=== PATIENT | female | born 1995 | race Asian ===

== ENCOUNTER 2016-10-14 20:56 | Emergency (ER) | payer BC, OTHER ==
[~2016-10-14] VITALS: Ht 154.9 cm; Wt 58.2 kg
[2016-10-14 21:06] VITALS: TEMP 37.1; Ht 154.9 cm; Wt 58.2 kg
[2016-10-14] MEDS ORDERED: PRENTAB26 PO (23:00)
[2016-10-14] MEDS ORDERED: SODIUM CHLORIDE 0.9% 1000ML 1,000 ML IV STA (23:04)
[2016-10-14 23:13] LABS: BASO % 0.3 %; BASO ABS # 0.02 K/uL (0-0.2); COMPLETE YES; HEMATOCRIT 37.1 % (37-47); IG% 0.3 %; LYMPH % 40.3 %; LYMPH ABS # 2.94 K/uL (1.2-3.4); MEAN CELL VOLUME 87.9 fL (80-100); MEAN CORPUSCULAR HEMOGLOBIN 31.8 pg (25-34); MEAN CORPUSCULAR HGB CONC 36.1 g/dl (32-36); MONO % 5.2 %; NEUT % 52.9 %; PLATELET COUNT 247 K/uL (130-400); RED BLOOD COUNT 4.22 M/uL (4.2-5.4); WHITE BLOOD COUNT 7.29 K/uL (4.8-10.8)
[2016-10-14 23:17] LABS: URINE APPEARANCE CLEAR (CLEAR); URINE BILIRUBIN NEG (NEG); URINE COLOR YELLOW; URINE NITRITE NEG (NEG); URINE PH 6.5 (4.5-7.5); URINE SPECIFIC GRAVITY 1.015 (1.000-1.030); UROBILINOGEN NEG (NEG); ZZUR CULT IF INDIC CLEAN CATCH NO
[2016-10-14 23:25] LABS: MANUAL MICROSCOPIC REQUIRED? NO; REVIEW REQ? NO
[2016-10-14 23:37] LABS: ALB/GLOB RATIO 1.2 (0.9-2); BUN/CREATININE RATIO 13.2 (10-20); CALCIUM 9.1 mg/dl (8.5-10.1); CREATININE 0.63 mg/dl (0.60-1.20); POTASSIUM 4.1 mmol/L (3.5-5.1)
--- NOTE | 2016-10-15 01:33 | EMERGENCY ROOM VISIT NOTE ---
History First contact with patient: 22:39 Chief Complaint: ABDOMINAL PAIN Stated Complaint: ABDOMINAL PAIN, JUST FOUND OUT SHE'S Nursing Triage Summary: 5 weeks spotting and cramping. History of Present Illness The patient is a 21 year old female who presents to the Emergency Department by private vehicle with her significant other for evaluation of her pelvic cramping. She reports that she developed cramping this evening. She reports feeling tired lately, but has had no other symptoms. She feels as though she may be five-weeks . Her last menstrual period was September 14. The patient had a miscarriage last year. She reports that she's had no vaginal discharge or drainage. She's had no bleeding or spotting. She has no SURVEY CREW CHIEF appointment at this point. The patient rates her current discomfort as a 6/10. She denies any dizziness, light headedness, chest pain, palpitations, short of breath, nausea, or vomiting. She reports no hematuria or dysuria. Review of Systems A complete 10-point Review of Systems was discussed with the patient, with pertinent positives and negatives listed in the History of Present Illness. All remaining Review of Systems questions can be considered negative unless otherwise specified. Social History Smoking Status: Never Smoker Smokeless Tobacco Use: No Alcohol Use: none Drug Use: none Current/Historical Medications Scheduled Multivit/Min/Iron/Fol Ac/Pren ( Vitamin), 1 TAB PO DAILY Allergies Coded Allergies: No Known Allergies (Unverified , 10/14/16) Physical Exam Vital Signs Date Time Temp Pulse Resp B/P Pulse Ox O2 Delivery O2 Flow Rate FiO2 10/15/16 01:49 84 18 102/61 99 10/15/16 00:49 87 20 103/53 98 Room Air 10/14/16 22:57 95 10/14/16 22:54 96 20 123/70 98 Room Air 10/14/16 21:06 37.1 79 18 115/64 98 Room Air Pain Rating (0-10): 6 Physical Exam VITAL SIGNS - Vital signs and nursing notes were reviewed. GENERAL - 21-year-old female appearing her stated age who is in no acute distress. Communicates well with provider and answers questions appropriately. LUNGS - Chest wall symmetric without accessory muscle use, intercostals retractions, or central cyanosis. Normal vesicular breath sounds CTA B/L. No wheezes, rales, or rhonchi appreciated. CARDIAC - RRR with S1/S2. No murmur, rubs, or gallops appreciated. ABDOMEN - Abdominal contour flat and without pulsations or visible masses. BS normoactive all four quadrants. No tenderness to palpation appreciated throughout. No guarding. No Rebound Tenderness. Negative Rovsing's. Negative Turner's. No palpable masses, hepatosplenomegaly, or ascites noted. PSYCH - A&Ox3 and cooperates fully with examiner. Pt is very pleasant and interacts well with examiner. Medical Decision & Procedures ER Provider Diagnostic Interpretation: Radiological imaging and reports were reviewed by myself. Radiologist's Interpretation per [facility] as follows: US OB 1st TRIMESTER: No IUP. Thickened endometrium, 2.1 cm Flow visualized in both ovaries. 2.6 cm right ovarian cyst with small septation. No adnexal mass Free fluid in the cul-de-sac, around the uterine fundus and right adnexal regions. If positive , may represent early IUP, spontaneous AB, nonvisualized ectopic Laboratory Results 10/14/16 23:00 Red Blood Count 4.22, Mean Corpuscular Volume 87.9, Mean Corpuscular Hemoglobin 31.8, Mean Corpuscular Hemoglobin Concent 36.1, Mean Platelet Volume 10.0, Neutrophils (%) (Auto) 52.9, Lymphocytes (%) (Auto) 40.3, Monocytes (%) (Auto) 5.2, Eosinophils (%) (Auto) 1.0, Basophils (%) (Auto) 0.3, Neutrophils # (Auto) 3.86, Lymphocytes # (Auto) 2.94, Monocytes # (Auto) 0.38, Eosinophils # (Auto) 0.07, Basophils # (Auto) 0.02 10/14/16 23:00 Test 10/14/16 23:00 White Blood Count 7.29 K/uL (4.8-10.8) Red Blood Count 4.22 M/uL (4.2-5.4) Hemoglobin 13.4 g/dL (12.0-16.0) Hematocrit 37.1 % (37-47) Mean Corpuscular Volume 87.9 fL (80-100) Mean Corpuscular Hemoglobin 31.8 pg (25-34) Mean Corpuscular Hemoglobin Concent 36.1 g/dl (32-36) Platelet Count 247 K/uL (130-400) Mean Platelet Volume 10.0 fL (7.4-10.4) Neutrophils (%) (Auto) 52.9 % Lymphocytes (%) (Auto) 40.3 % Monocytes (%) (Auto) 5.2 % Eosinophils (%) (Auto) 1.0 % Basophils (%) (Auto) 0.3 % Neutrophils # (Auto) 3.86 K/uL (1.4-6.5) Lymphocytes # (Auto) 2.94 K/uL (1.2-3.4) Monocytes # (Auto) 0.38 K/uL (0.11-0.59) Eosinophils # (Auto) 0.07 K/uL (0-0.5) Basophils # (Auto) 0.02 K/uL (0-0.2) RDW Standard Deviation 38.8 fL (36.4-46.3) RDW Coefficient of Variation 12.1 % (11.5-14.5) Immature Granulocyte % (Auto) 0.3 % Immature Granulocyte # (Auto) 0.02 K/uL (0.00-0.02) Urine Color YELLOW Urine Appearance CLEAR (CLEAR) Urine pH 6.5 (4.5-7.5) Urine Specific [place] 1.015 (1.000-1.030) Urine Protein NEG (NEG) Urine Glucose (UA) NEG (NEG) Urine Ketones NEG (NEG) Urine Occult Blood NEG (NEG) Urine Nitrite NEG (NEG) Urine Bilirubin NEG (NEG) Urine Urobilinogen NEG (NEG) Urine Leukocyte Esterase NEG (NEG) Urine Test POS (NEG) Anion Gap 8.0 mmol/L (3-11) Est Creatinine Clear Calc Drug Dose 113.9 ml/min Estimated GFR () 146.5 Estimated GFR (Non- 126.4 BUN/Creatinine Ratio 13.2 (10-20) Calcium Level 9.1 mg/dl (8.5-10.1) Total Bilirubin 0.2 mg/dl (0.2-1) Aspartate Amino Transf (AST/SGOT) 17 U/L (15-37) Alanine Aminotransferase (ALT/SGPT) 25 U/L (12-78) Alkaline Phosphatase 68 U/L (45-117) Total Protein 7.6 gm/dl (6.4-8.2) Albumin 4.2 gm/dl (3.4-5.0) Globulin 3.4 gm/dl (2.5-4.0) Albumin/Globulin Ratio 1.2 (0.9-2) Human Chorionic Gonadotropin, Quant 373 mIU/mL Chemistry Specimen Hemolysis Medications Administered Medications (Trade) Dose Ordered Sig/Heath Route Start Time Stop Time Status Last Admin Dose Admin Sodium Chloride (Nss 1000ml) 1,000 ml @ 250 mls/hr Q4H STAT IV 10/14/16 23:04 10/15/16 02:52 DC 10/14/16 23:04 250 MLS/HR ED Course Patient was seen and evaluated by myself. Labs were drawn, saline lock in place. The patient was hydrated with normal saline. Pelvic ultrasound is ordered. Laboratory results demonstrate no acute leukocytosis, worrisome anemia , or bandemia. The patient has no significant electrolyte abnormalities. Lactate hCG is elevated at 373. Urine is positive. Urinalysis is unremarkable. Pelvic ultrasound as above. Laboratory results and imaging studies were reviewed with the patient and who acknowledges understanding. They'll follow-up quantitative hCG with her SURVEY CREW CHIEF in 48 hours. They're encouraged to return to the emergency department if they were unable to establish this appointment or if symptoms were to change or worsen. They were educated on worrisome symptoms for return visit to the emergency department. Patient discharged home afebrile and in good condition. Medical Decision Given the patient's presentation and stated complaints, I did elect to perform the above-mentioned workup. The patient resents today with pelvic discomfort. She has no vaginal bleeding or spotting. The patient is early in with some pelvic cramping. She his B+ on review of her previous blood work. Her ultrasound is otherwise unremarkable. At this point, the patient certainly has a delicate stage given the timeframe of her . The patient has not established obstetric follow-up this point. She was educated on worrisome symptoms for return visit to the emergency department. Patient discharged home in good condition. In the evaluation and treatment of this patient, the following differential diagnoses were considered: UTI, ectopic, threatened , appendicitis, amongst others. Impression Primary Impression: Pelvic pain during Departure Information Dispostion Home / Self-Care Condition GOOD Referrals Debbie Acosta MD (PCP) William Peace ., DO Patient Instructions ED Pelvic Pain Preg UKO 2 or 3 Tri, My [facility] Additional Instructions You have been seen in the emergency department today for your pelvic pain in early . Please follow-up with SURVEY CREW CHIEF in 48 hours for repeat laboratory testing, specifically quantitative hCG. If you are unable to see SURVEY CREW CHIEF, please return to the emergency Department for repeat testing. Return to the emergency department sooner for any changing or worsening symptoms.
[2016-10-15 01:49] VITALS: BP 102/61; PULSE 84; O2SAT 99
--- NOTE | 2016-10-15 06:39 | DIAGNOSTIC IMAGING REPORT ---
ULTRASOUND CLINICAL HISTORY: Pelvic pain. . COMPARISON STUDY: Pelvic ultrasound May 19, 2016. TECHNIQUE: Transabdominal and transvaginal sonography of the pelvis was performed. FINDINGS: The uterus measures 8.5 x 4.2 x 5.4 cm. No intrauterine gestational sac is identified. The endometrium is thickened, measuring 2.1 cm in thickness. There is a small to moderate amount of fluid within the pelvis. The right ovary measures 3.8 x 3.2 x 3.2 cm and contains a mildly complex 2.6 cm cyst. The left ovary measures 2.8 x 1.7 x 1.4 cm. Color flow is identified within each ovary. IMPRESSION: 1. No intrauterine gestational sac identified. Given positive test, differential considerations include a normal early intrauterine , missed spontaneous and sonographically occult ectopic patency. Clinical follow-up, including serial beta hCG levels, is recommended. 2. Small to moderate amount of fluid within the pelvis. 3. 2.6 cm right ovarian cyst. Electronically signed by: Domingo Kirk M.D. 10/15/2016 6:38 AM Dictated Date/Time: 10/15/2016 6:36 AM
[2017-06-17] MEDS ORDERED: MTR600X PO (07:29)
== END 2016-10-15 01:49 | disposition home or self-care (01) ==
LOC: C.EDB 20:58 → C.EDC 10-15 01:49
DX: R10.2 Pelvic and perineal pain (principal); O00.01 Abdominal pregnancy with intrauterine pregnancy; Z3A.01 Less than 8 weeks gestation of pregnancy

== ENCOUNTER 2017-02-07 16:07 | Emergency (ER) | payer OTHER ==
[~2017-02-07] VITALS: Ht 154.9 cm; Wt 62.7 kg
[~2017-02-07 16:07] MED LIST: PRENTAB26 PO
[2017-02-07 16:12] VITALS: BP 116/70; PULSE 80; TEMP 37; O2SAT 98; Ht 154.9 cm; Wt 62.7 kg
--- NOTE | 2017-02-07 16:35 | EMERGENCY ROOM VISIT NOTE ---
ED Visit Note First contact with patient: 16:15 CHIEF COMPLAINT: Left thumb laceration HISTORY OF PRESENT ILLNESS: This 21-year-old female patient presents to the emergency department ambulatory after cutting the left thumb just prior to arrival. The patient states that she was cutting up onions with a sharp knife when she missed and cut her thumb. The bleeding stopped shortly after the injury and there is no weakness or numbness of the area. Patient is unsure of her tetanus status. Full range of motion of the thumb. The patient rates her discomfort a 7/10. The patient is 5 months . REVIEW OF SYSTEMS: A 6 system review of systems was completed with positives and pertinent negatives listed in the HPI. ALLERGIES: No known drug allergies MEDICATIONS: vitamin PMH: No significant past medical history. SOCIAL HISTORY: The patient lives locally with family. Nonsmoker. PHYSICAL EXAM: Vital Signs: Reviewed Nurse's notes, vital signs stable. GENERAL : This is a 21-year-old female, in no acute distress, well-developed, well- nourished. SKIN: There is a 0.5 cm long laceration to the distal aspect of the left thumb. It is superficial and the edges only mildly gape apart with traction, but lay well without traction. There is no foreign material in the wound and it looks clean. There is no active bleeding. No deep structures such as tendons or nerves are seen in the base of the wound. Extension and flexion of the thumb is full and strong. Sensation to pain and light touch is intact. EMERGENCY DEPARTMENT COURSE: I examined the patient. Verbal consent was obtained to perform the procedure. The laceration was cleaned with betadine and sterile saline and there was no bleeding. The edges of the laceration were approximated and secured with 3 layers of Dermabond glue with good wound approximation. The patient tolerated the procedure well. The patient was offered a tetanus booster but prefers to follow-up with her AIR BREAKER OPERATOR, because she is unsure if she already received one or not. She was instructed to contact them on Thursday. Conservative measures were discussed. The patient was discharged home in stable condition. DIAGNOSIS: Finger laceration Current/Historical Medications Scheduled Multivit/Min/Iron/Fol Ac/Pren ( Vitamin), 1 TAB PO DAILY Allergies Coded Allergies: No Known Allergies (Unverified , 02/07/17) Vital Signs Date Time Temp Pulse Resp B/P (MAP) Pulse Ox O2 Delivery O2 Flow Rate FiO2 7/22/17 16:12 37.0 80 18 116/70 98 Room Air Departure Information Impression Primary Impression: Laceration of finger Dispostion Home / Self-Care Condition GOOD Referrals Debbie Acosta MD (PCP) Patient Instructions ED Laceration Ext Skin Glue, My [facility] Additional Instructions Read DermaBond handout. Ice and elevate for swelling and pain. Tylenol as needed for pain. Return for any signs of infection (increasing redness, swelling, drainage, fever ). Call your AIR BREAKER OPERATOR to make sure that your tetanus is up to date. Problem Qualifiers Primary Impression: Laceration of finger Encounter type: initial encounter Finger: thumb Damage to nail status: without damage Foreign body presence: without foreign body Laterality: left Qualified Codes: S61.012A - Laceration without foreign body of left thumb without damage to nail, initial encounter
== END 2017-02-07 16:40 | disposition home or self-care (01) ==
LOC: C.EDB 16:08 → C.EDD 16:40
DX: S61.012A Laceration without foreign body of left thumb without damage to nail, initial encounter (principal); W26.0XXA Contact with knife, initial encounter; Y93.G1 Activity, food preparation and clean up; Y99.8 Other external cause status

== ENCOUNTER 2017-06-16 00:56 | Inpatient (IN) | payer OTHER ==
[~2017-06-16] VITALS: Ht 154.9 cm; Wt 72.7 kg
[2017-06-16] MEDS ORDERED: LACTATED RINGER'S 1000ML 1,000 ML IV SCH (01:40)
[2017-06-16] MEDS ORDERED: LACTATED RINGER'S 1000ML 1,000 ML IV PRN (01:40)
[2017-06-16] MEDS ORDERED: BUPIVACAINE 0.25% 30 ML VIAL ONE (01:49)
[2017-06-16] MEDS ORDERED: EpHEDrine SULFATE INJ 50 MG/ML AMP ONE (01:49)
[2017-06-16] MEDS ORDERED: FENTANYL 2MCG/ML ROPIV 1.25MG/ML 100ML BAG EPI ONE (01:50)
[2017-06-16] MEDS ORDERED: FENTANYL CITRATE INJ 50 MCG/1 ML 2 ML VIAL ONE (01:50)
[2017-06-16 01:58] LABS: HEMATOCRIT 33.6 % (37-47); MEAN CELL VOLUME 88.9 fL (80-100); MEAN CORPUSCULAR HGB CONC 34.8 g/dl (32-36); MEAN PLATELET VOLUME 10.7 fL (7.4-10.4); PLATELET COUNT 173 K/uL (130-400); RED BLOOD COUNT 3.78 M/uL (4.2-5.4); WHITE BLOOD COUNT 9.68 K/uL (4.8-10.8)
[2017-06-16 02:05] VITALS: Ht 154.9 cm; Wt 72.7 kg
[2017-06-16] MEDS ORDERED: NALOXONE HCL INJ 1 MG in SODIUM CHLORIDE 0.9% 1000ML 1,000 ML IV PRN (02:33)
[2017-06-16] MEDS ORDERED: LACTATED RINGER'S 1000ML 500 ML IV PRN (02:33)
[2017-06-16] MEDS ORDERED: NALOXONE HCL INJ 0.4 MG/1 ML VIAL/CARP IV PRN (02:45)
[2017-06-16] MEDS ORDERED: ONDANSETRON INJ 2 MG/ML 2 ML VIAL IV PRN (02:45)
[2017-06-16] MEDS ORDERED: NALBUPHINE HCL INJ 10 MG/ML AMP IV PRN (02:45)
[2017-06-16] MEDS ORDERED: DiphenhydrAMINE HCL 50 MG/ML VIAL IV PRN (02:45)
[2017-06-16] MEDS ORDERED: EpHEDrine SULFATE INJ 50 MG/ML AMP IV PRN (02:45)
[2017-06-16] MEDS ORDERED: FENTANYL 2MCG/ML ROPIV 1.25MG/ML 100ML BAG EPI PRN (02:45)
[2017-06-16] MEDS ORDERED: OXYTOCIN 30 UNITS/500ML NSS IV ONE (06:23)
[2017-06-16] MEDS ORDERED: HYDROCORTISONE ACETATE 25 MG SUPP PR PRN (07:15)
[2017-06-16] MEDS ORDERED: DIPHTHERIA/TETANUS/PERTUSSIS 0.5 ML SYR/VIAL IM. ONE (07:15)
[2017-06-16] MEDS ORDERED: ACETAMINOPHEN 325 MG TAB PO PRN (07:15)
[2017-06-16] MEDS ORDERED: OXYCODONE/ACETAMINOPHEN 5-325 TAB PO PRN (07:15)
[2017-06-16] MEDS ORDERED: OXYTOCIN 30 UNITS/500ML NSS IV PRN (07:15)
[2017-06-16] MEDS ORDERED: SUPERCREAM 0.870 % 15GM JAR EXT PRN (07:15)
[2017-06-16] MEDS ORDERED: BENZOCAINE 20% AER SPR 82.5 GM CAN EXT PRN (07:15)
[2017-06-16] MEDS ORDERED: LANOLIN OINT EXT PRN ×2 (07:15)
[2017-06-16] MEDS ORDERED: IBUPROFEN 600 MG TAB PO PRN (07:15)
--- NOTE | 2017-06-16 07:23 | DELIVERY SUMMARY ---
DATE OF OPERATION: 06/16/2017 TIME OF DELIVERY: 06:41 a.m. DELIVERY OF PLACENTA: 06:43 a.m. DELIVERY NOTE: The patient is a 22-year-old, 2, para 0 at 38 weeks and 3 days gestation, who was admitted to labor and delivery on the morning of 06/16/2017 in active labor. She received an epidural for anesthesia. Artificial rupture of membranes was performed at 03:53 a.m. with clear amniotic fluid noted and reached complete dilation at 05:42 a.m. with urge to push. The patient pushed to delivery at 06:41 a.m. She delivered a viable female in the left occiput anterior position to an intact perineum. The baby was delivered and placed on the patient's abdomen. Cord was clamped x2 and cut. Apgars were 6 at 1 minute and 9 at 5 minutes. Please see nursing notes for further baby assessment. Cord blood was then obtained. Intact placenta with 3-vessel cord was delivered at 06:43 a.m. Oxytocin infusion was then begun. The lower uterine segment and vagina were cleared of any blood clots and debris. Exploration of the perineum noted a second-degree vaginal laceration, which was repaired with 2-0 and 3-0 Vicryl sutures in a normal fashion. Excellent hemostasis was noted. No other lacerations were seen. Estimated blood loss was 250 mL. All sponge, instrument and needle counts were found to be correct x2. Both the patient and baby tolerated the delivery well and were in recovery with stable vital signs. I attest to the content of the Intraoperative Record and any orders documented therein. Any exception s are noted below.
[2017-06-16 09:30] VITALS: BP 107/60; PULSE 98; TEMP 37.3; O2SAT 97
[2017-06-16] MEDS: PRENATAL VITAMIN TAB PO SCH (09:31)
[2017-06-16] MEDS: DOCUSATE SODIUM 100 MG CAP PO SCH ×2 (09:31→20:00)
[2017-06-16] MEDS: FERROUS SULFATE 325 MG TAB PO SCH (09:31)
--- NOTE | 2017-06-16 10:08 | Anesthesia Procedure Note ---
Anesthesia Epidural Removal Nt Date & Time Jun 16, 2017 at 10:08 Vital Signs Pain Intensity: 0.0 Notes Mental Status: alert / awake / arousable, participated in evaluation Nausea / Vomiting: adequately controlled Pain: adequately controlled Airway Patency, RR, SpO2: stable & adequate BP & HR: stable & adequate Hydration State: stable & adequate Neuraxial Anesthesia: was administered, sensory block is resolving Anesthetic Complications: no major complications apparent, pt satisfied with anesthetic care Epidural: removed without complications, with tip intact
[2017-06-16 12:25] VITALS: BP 110/64; PULSE 105; TEMP 36.9; O2SAT 98
[2017-06-16 15:15] VITALS: BP 115/70; PULSE 98; TEMP 36.8; O2SAT 98
[2017-06-16 19:45] VITALS: BP 118/68; PULSE 103; TEMP 36.6
[2017-06-16 23:25] VITALS: BP 111/69; PULSE 93; TEMP 36.5
[2017-06-17 03:35] VITALS: BP 118/77; PULSE 98; TEMP 36.8
[2017-06-17] MEDS: DOCUSATE SODIUM 100 MG CAP PO SCH ×2 (07:29→20:09)
[2017-06-17] MEDS ORDERED: MTR600X PO (07:29)
[2017-06-17] MEDS: PRENATAL VITAMIN TAB PO SCH (07:29)
[2017-06-17] MEDS: FERROUS SULFATE 325 MG TAB PO SCH (07:29)
[2017-06-17 07:30] VITALS: BP 122/77; PULSE 101; TEMP 36.9; O2SAT 97
--- NOTE | 2017-06-17 07:30 | Discharge Instructions ---
Discharge Instructions Date of Service Jun 17, 2017. Admission Reason for Admission: Labor Check Discharge Discharge Diagnosis / Problem: Vaginal delivery Discharge Goals Goal(s): Routine recovery after delivery Medications Continue Dispensed Medications: supercream, dermaplast, tucks, lansinoh Activity Recommendations Activity Limitations: per Instructions/Follow-up section . Instructions / Follow-Up Instructions / Follow-Up ACTIVITY RECOMMENDATIONS: * Gradual return to full activity over the next 2-3 weeks. * No lifting - nothing heavier than baby over the next 2-3 weeks. * Do not engage in vigorous exercise, sexual activity or sports until cleared by your physician. * Do not drive or operate any motorized equipment until cleared by your physician. * You may shower/bathe daily. BREAST CARE: If you are not breast feeding: * Wear a supportive bra 24 hours a day for one to two weeks. * Avoid stimulating your breasts and nipples as much as possible during the first few weeks after delivery. * When taking a shower, have the warm water hit your back, not breasts. * When your breasts feel full, apply ice packs. Usually three to four times a day helps ease the discomfort. * Take a mild pain medication (Tylenol/Motrin) when you are uncomfortable. If breast feeding: * Use breast milk to lubricate nipples. Lansinoh cream may be used for sore nipples. You do not need to remove cream prior to breast feeding. If using a different brand of cream, check the label for directions regarding removal of cream prior to nursing. * Wear a supportive bra. * If having problems with breasts or breast feeding, call a business intelligence consultant or your health care provider. EPISIOTOMY CARE: After delivery, if you have an episiotomy (stitches), the following steps will ease discomfort and aid healing. * For the first 24 hours after delivery, place ice packs next to your episiotomy to help reduce swelling. * After the first 24 hour-period, sitz baths, either portable or in the tub, are suggested. A shower with a shower arm sprayed over the episiotomy may be comforting. * Paola care should be done after each voiding and bowel movement. Squirt warm water from a plastic bottle over the perineum (region of the body between the anus and urinary opening) and pat dry. * Use Dermoplast to ease discomfort. Shake container. Rush directly over the episiotomy. * Place a Tucks on a clean sanitary pad next to your episiotomy. OVER THE COUNTER MEDICATION: * For discomfort or pain, you may use Acetaminophen (Tylenol), Ibuprofen (Advil ), or Naproxen (Aleve) following the package directions. * For constipation you may use Colace following the package directions. SPECIAL CARE INSTRUCTIONS: When you are discharged from the hospital, it is important for you to follow the instructions listed below: * During the first week at home, you should be able to care for yourself and your baby. In addition, the usual light household activities are encouraged. * Limit your activities to the way you feel. Do not try to clean the house or move furniture. Be sensible. * If you actively engage in sports and have done so up until the time of your delivery, you may resume these activities as soon as you feel able. This may take up to one month or even longer. Use good judgment. * Continue to take your vitamins for at least six weeks after the of your baby. * Your diet need not be limited unless you were on a special diet before your delivery. Breast-feeding mothers need around 2500 calories per day and at least 64-80 ounces of fluid per day (8 to 10 glasses). * You should eat foods from the four major food groups. Crash diets or fad diets are to be avoided. Eating lean meats, fresh fruits and vegetables, low-fat dairy products, high fiber foods and a regular exercise program, will help you get back to your pre- weight without putting your health at risk. * Constipation is sometimes a problem after delivery. Take a mild laxative as needed. If breast feeding, Milk of Magnesia is acceptable to use. You may use a suppository or Fleets enema if no episiotomy. * A daily shower or tub bath is suggested. Be sure to thoroughly and gently dry the perineum. * A bloody vaginal discharge will usually continue until around four weeks post . A small amount of bleeding may continue for as long as six weeks. Vaginal discharge changes from the bright red bleeding after delivery to pink then brownish and finally yellowish-pink before becoming white and disappearing. * Bleeding may increase with activity. Your first period may come in 4-8 weeks. If you are breast feeding, your period may be delayed even longer. * Dalton (sex) can begin whenever both you and your partner feel comfortable and do not have any form of genital infection. It is recommended that you wait until after your return appointment and discuss with your physician. If you have questions, please talk to your health care practitioner. A condom should be used to prevent infection and . * Foreplay, gentle intercourse and lubrication is very important the first several times to prevent pain. A water-based lubricant such as K-Y jelly or Astroglide may be used. * Tampons may be used six weeks after delivery. * Douching should be avoided for 6 weeks after delivery. * If you have RH negative blood and your baby is RH positive, you will receive RHOGAM by injection prior to discharge. The nurse will give you a card to keep with you that has the date and place that you received RHOGAM after delivery. * During your care, you had a Rubella screen done to check for the presence of rubella antibodies in your blood. If your test was negative, you will receive a Rubella vaccine prior to discharge. This vaccine may cause a fever, soreness at the injection site and flu-like symptoms. If these symptoms persist, notify your health care practitioner. is not advised for three months after a Rubella vaccine. There is a higher chance of having a baby with defects if conceived within three months of getting the vaccine. * If you were discharged 24 hours from delivery or before 48 hours: Visiting nurses will come to your home 48 hours after discharge to assess you and your baby. The visiting nurse will meet with you while you are in the hospital to arrange a time and get directions to your home. * Verbalizes understanding of car seat law as reviewed with patient nursing. * Car Seat hand-out given and reviewed with patient by nursing. * Shaken baby information reviewed with patient by nursing. Call you doctor if: * Heavy bleeding (saturating several pads an hour) or passing clots the size of your fist. * A fever >101 degrees F (38.3 degrees C) on two occasions four hours apart and/or chills. * Unusual pain in the pelvic or vaginal areas. * "Baby Blues" lasting longer than two weeks. If you have any questions or concerns, call your health care practitioner at . FOLLOW-UP VISIT: * Please call the office at to schedule a 6 week examination. It is important you keep this appointment. * It is important for you to make arrangements for either yearly or twice yearly check-ups thereafter. Current Hospital Diet Patient's current hospital diet: Regular OB Diet Discharge Diet Recommended Diet: Regular OB Diet Pending Studies Studies pending at discharge: no Medical Emergencies . Who to Call and When: Medical Emergencies: If at any time you feel your situation is an emergency, please call 911 immediately. . Non-Emergent Contact Non-Emergency issues call your: Primary Care Provider, Cream Hauler . . "Provider Documentation" section prepared by William Peace. . VTE Core Measure Inpt VTE Proph given/why not?: Treatment not indicated
--- NOTE | 2017-06-17 07:33 | OB/GYN Progress Note ---
[employer] Progress Note Date of Service Jun 17, 2017. Subjective conversation w/ patient Ambulation: ambulating normally Voiding: no voiding problems Passing Gas: Yes Diet Tolerance: Regular Diet Lochia: Moderate Feeding Type: Breast Feeding Pain: 10/27 Notes: Doing well. Pain well controlled. Tolerating regular diet. Ambulating without difficulty. Lochia decreasing. Would like to go home today. Review of Systems Constitutional: No fever, No chills, No sweats, No weight loss, No weakness, No fatigue, No problem reported Respiratory: No cough, No sputum, No wheezing, No shortness of breath, No dyspnea on exertion, No dyspnea at rest, No hemoptysis, No problem reported Cardiac: No chest pain, No orthopnea, No PND, No edema, No claudication, No palpitations, No problem reported Abdomen: No pain, No nausea, No vomiting, No diarrhea, No constipation, No GI bleeding, No problem reported Female : No see HPI, No dysuria, No urinary frequency, No hematuria, No incontinence, No abnormal vaginal bleeding, No vaginal discharge, No problem reported Objective Vital Signs Date Time Temp Pulse Resp B/P (MAP) Pulse Ox O2 Delivery O2 Flow Rate FiO2 06/17/17 03:35 36.8 98 18 118/77 (91) Room Air 06/16/17 23:25 36.5 93 18 111/69 (83) Room Air 06/16/17 23:25 Room Air 06/16/17 19:45 Room Air 06/16/17 19:45 36.6 103 20 118/68 (85) Room Air 06/16/17 15:15 36.8 98 18 115/70 (85) 98 Room Air 06/16/17 15:15 Room Air 06/16/17 12:25 36.9 105 16 110/64 (79) 98 Room Air 06/16/17 09:30 Room Air 06/16/17 09:30 37.3 98 16 107/60 (76) 97 Room Air Laboratory Results Last 24 Hours Test 06/17/17 06:23 Hemoglobin 11.1 g/dL Hematocrit 32.0 % Assessment and Plan Post- Day Number: 1 Continue Routine Care: -D/C home today -F/U in 6 weeks.
[2017-06-17 15:45] VITALS: BP 122/69; PULSE 102; TEMP 36.9; O2SAT 98
[2017-06-17] MEDS ORDERED: BISACODYL 5 MG TABEC PO SCH (20:00)
[2017-06-17 23:30] VITALS: BP 105/80; PULSE 91; TEMP 36.8
[2017-06-18] MEDS ORDERED: BISACODYL 10 MG SUPP PR PRN (07:00)
[2017-06-18 07:40] VITALS: BP 103/67; PULSE 97; TEMP 36.3; O2SAT 97
[2017-06-18] MEDS: FERROUS SULFATE 325 MG TAB PO SCH (07:47)
[2017-06-18] MEDS: DOCUSATE SODIUM 100 MG CAP PO SCH (07:47)
[2017-06-18] MEDS: PRENATAL VITAMIN TAB PO SCH (07:47)
[2017-06-18 08:17] LABS: HEMATOCRIT 34.7 % (37-47); MEAN CELL VOLUME 90.8 fL (80-100); MEAN CORPUSCULAR HEMOGLOBIN 30.4 pg (25-34); MEAN CORPUSCULAR HGB CONC 33.4 g/dl (32-36); MEAN PLATELET VOLUME 10.5 fL (7.4-10.4); PLATELET COUNT 186 K/uL (130-400); RED BLOOD COUNT 3.82 M/uL (4.2-5.4); WHITE BLOOD COUNT 14.07 K/uL (4.8-10.8)
[2017-06-18 14:30] VITALS: BP_DIAS 67; PULSE 97; TEMP 36.3
== END 2017-06-18 14:30 | disposition home or self-care (01) | DRG 775 ==
LOC: C.LD 00:56 → C.OPB 00:56 → C.LD 01:42 → C.OBG 09:29
PROVIDERS: ADMIT Obstetrics & Gynecology; ATTEND Obstetrics & Gynecology
PROC: 0KQM0ZZ Repair Perineum Muscle, Open Approach (ICD-10-PCS; principal; 2017-06-16)
PROC: 10E0XZZ Delivery of Products of Conception, External Approach (ICD-10-PCS; principal; 2017-06-16)
DX: O76 Abnormality in fetal heart rate and rhythm complicating labor and delivery (principal); O70.1 Second degree perineal laceration during delivery; Z3A.38 38 weeks gestation of pregnancy; Z37.0 Single live birth